=== PATIENT | male | born 1955 | race Caucasian/White ===

== ENCOUNTER 2017-08-01 12:16 | Observation (INO) | payer OTHER ==
[2017-08-01] MEDS ORDERED: Furosemide IV* 10 MG/ML 10 ML VIAL (100 MG) IV ONE (12:36)
[2017-08-01 13:07] LABS: Hematocrit 32 % (42-52); Hemoglobin 10.4 g/dl (14.0-18.0); Mean Corpuscular HGB Conc 32 g/dl (31-36); Mean Corpuscular Hemoglobin 23 pg (27-31); Mean Corpuscular Volume 71 fL (80-94); Mean Platelet Volume 6.6 um3 (7.4-10.4); Platelet Count 184 10^3/ul (150-450); Red Blood Count 4.56 10^6/ul (4.0-5.4); Red Cell Distribution Width 19 % (10.5-15)
[2017-08-01 13:15] LABS: INR 1.21 (0.77-1.02)
[2017-08-01 13:28] LABS: EGFR Non-African American 103.9 (>60)
--- NOTE | 2017-08-01 13:30 | RAD ---
INDICATION: Short of breath COMPARISON: May 29, 2013 TECHNIQUE: PA and lateral dual-energy views were obtained. FINDINGS: Bones/Soft Tissues: There are no acute bony findings. Cardiomediastinal: The cardiomediastinal silhouette is normal. Lungs: There are no infiltrates. There is normal platelike atelectasis or scarring in the lung bases Pleura: There are no pleural effusions. Other: None IMPRESSION: NO ACTIVE DISEASE.
[2017-08-01 13:45] LABS: ABS Basophils 0 10^3/ul (0-0.2); ABS Eosinophils 0 10^3/ul (0-0.6); ABS Lymphocytes 0.6 10^3/ul (1.0-4.8); ABS Monocytes 0.4 10^3/ul (0-0.8); ABS Nucleated RBC 0 10^3/ul; Eosinophil % 0.3 % (0-6); Lymphocyte % 6.9 % (25-47); Nucleated Red Blood Cells % 0
[2017-08-01 14:02] LABS: Urine Appearance Clear; Urine Blood Negative (Negative); Urine Color Colorless; Urine Ketones Negative (Negative); Urine Protein Negative (Negative); Urine Specific Gravity 1.005 (1.010-1.030); Urine Urobilinogen Negative (Negative)
[2017-08-01] MEDS ORDERED: NS 0.9% 1000 ML* 1,000 ML IV SCH (14:45)
[2017-08-01] MEDS ORDERED: Iohexol 300* (CONTRAST) 10 ML SDV IV ONE (15:14)
[2017-08-01] MEDS ORDERED: hydrALAZINE IV* 20 MG/ML VIAL IV SLOW PU PRN (15:21)
--- NOTE | 2017-08-01 15:47 | ED ---
Faisal Landaverde Gabriel, scribed for Jude Trevino MD on 08/01/17 at 1243 . Shortness of Breath - HPI Summary HPI Summary: This patient is a 61 year old M BIBA to [facility] accompanied by his with a chief complaint of general edema for the last three weeks that is getting worse. The patient rates the pain 0/10 in severity. Patient reports ABD distension, weight gain of around 40 lbs, and SOB. Pt denies hx of ascites and CHF. He states he has never had swelling like this before, although for the past few months he has had mild intermittent LLE edema. He takes a large amount of ibuprofen for the pain in his left thigh due to a mass that has been there for 15+ years. He states he does not want this to be looked at today, his is only concerned about his SOB. - History of Current Complaint Chief Complaint: EDShortnessOfBreath Time Seen by Provider: 08/01/17 12:29 Hx Obtained From: Patient Onset/Duration: Lasting Weeks - 3, Still Present Timing: Constant Current Severity: Moderate Dyspnea At: Rest Associated Signs & Symptoms: Edema - Allergy/Home Medications Allergies/Adverse Reactions: Allergies Allergy/AdvReac Type Severity Reaction Status Date / Time Adhesive Tape Allergy JAMISON, Verified 05/30/13 15:38 IRRITATION ENVIRONMENTAL/SEASONAL Allergy Congestion Uncoded 05/30/13 15:38 HAYFEVER Home Medications: Home Medications NK [No Home Medications Reported] 08/01/17 [History Confirmed 08/01/17] PMH/Surg Hx/FS Hx/Imm Hx Endocrine/Hematology History: Reports: Hx Anemia - control with medication Denies: Hx Bone Marrow Disease, Hx Sickle Cell Disease Cardiovascular History: Reports: Hx Hypertension - just started medication 2012, Other Cardiovascular Problems/Disorders - bilateral leg swelling Denies: Hx Angina, Hx Cardiomegaly, Hx Congestive Heart Failure, Hx Coronary Artery Disease, Hx Pacemaker/ICD, Hx Peripheral Vascular Disease, Hx Rheumatic Fever, Hx Valvular Heart Disease Respiratory History: Denies: Hx Pulmonary Edema, Hx Pulmonary Embolism Musculoskeletal History: Reports: Other Musculoskeletal History - occasional backache Denies: Hx Arthritis, Hx Bursitis, Hx Tendonitis Sensory History: Denies: Hx Contacts or Glasses, Hx Hearing Aid Opthamlomology History: Denies: Hx Contacts or Glasses Neurological History: Denies: Hx CVA, Hx Dementia - Surgical History Surgery Procedure, Year, and Place: LIPOMA Hx Anesthesia Reactions: No Infectious Disease History: No Infectious Disease History: Denies: Traveled Outside the [place] in Last 30 Days - Family History Known Family History: Negative: Diabetes, Renal Disease, Respiratory Disease, Seizure Disorder, Blood Disorder - Social History Lives: With Family Alcohol Use: Occasionally Substance Use Type: Reports: None Smoking Status (MU): Never Smoked Tobacco Review of Systems Positive: Other - weight gain of around 40 lbs Positive: Shortness Of Breath Positive: Other - distension Positive: Edema Positive: Other - mass in left hip All Other Systems Reviewed And Are Negative: Yes Physical Exam - Summary Physical Exam Summary: VITAL SIGNS: Reviewed. GENERAL: ~Obese male who is in mild respiratory distress secondary to SOB, he is able to speak in full sentences. HEAD AND FACE: No signs of trauma. ~No ecchymosis, hematomas or skull depressions. No sinus tenderness. EYES: PERRLA, EOMI x 2, No injected conjunctiva, no nystagmus. EARS: Hearing grossly intact. Ear canals and tympanic membranes are within normal limits. MOUTH: Oropharynx within normal limits. NECK: Supple, trachea is midline, no adenopathy, no JVD, no carotid bruit, no c- spine tenderness, neck with full ROM. CHEST: Symmetric, no tenderness at palpation LUNGS: bilateral crackles. CVS: muffled heart sounds ABDOMEN: ABD is distended with anasarca EXTREMITIES: bilateral LE edema that is 4+ NEURO: Alert and oriented x 3. No acute neurological deficits. Speech is normal and follows commands. SKIN: Dry and warm, mass in the left pelvic area and left proximal aspect of the left thigh Triage Information Reviewed: Yes Vital Signs On Initial Exam: Initial Vitals Pulse Resp BP Pulse Ox 99 26 209/107 96 08/01/17 12:21 08/01/17 12:21 08/01/17 12:21 08/01/17 12:21 Vital Signs Reviewed: Yes Diagnostics - Vital Signs Vital Signs Temp Pulse Resp BP Pulse Ox 08/01/17 12:23 97.3 F 97 24 209/107 96 08/01/17 12:21 99 26 209/107 96 - Laboratory Lab Results: Lab Results 08/01/17 08/01/17 08/01/17 Range/Units 12:55 12:55 12:55 WBC 8.0 (3.5-10.8) 10^3/ul RBC 4.56 (4.0-5.4) 10^6/ul Hgb 10.4 L (14.0-18.0) g/dl Hct 32 L (42-52) % MCV 71 L (80-94) fL MCH 23 L (27-31) pg MCHC 32 (31-36) g/dl RDW 19 H (10.5-15) % Plt Count 184 (150-450) 10^3/ul MPV 6.6 L (7.4-10.4) um3 Neut % (Auto) 87.2 H (38-83) % Lymph % (Auto) 6.9 L (25-47) % [place] % (Auto) 5.3 (0-7) % Eos % (Auto) 0.3 (0-6) % Baso % (Auto) 0.3 (0-2) % Absolute Neuts (auto) 7.0 (1.5-7.7) 10^3/ul Absolute Lymphs (auto) 0.6 L (1.0-4.8) 10^3/ul Absolute Monos (auto) 0.4 (0-0.8) 10^3/ul Absolute Eos (auto) 0 (0-0.6) 10^3/ul Absolute Basos (auto) 0 (0-0.2) 10^3/ul Absolute Nucleated RBC 0 10^3/ul Nucleated RBC % 0 INR (Anticoag Therapy) (0.77-1.02) APTT (26.0-36.3) seconds Sodium 141 (139-145) mmol/L Potassium 4.2 (3.5-5.0) mmol/L Chloride 106 (101-111) mmol/L Carbon Dioxide 30 (22-32) mmol/L Anion Gap 5 (2-11) mmol/L BUN 18 (6-24) mg/dL Creatinine 0.76 (0.67-1.17) mg/dL Est GFR ( Amer) 133.7 (>60) Est GFR (Non-Af Amer) 103.9 (>60) BUN/Creatinine Ratio 23.7 H (8-20) Glucose 133 H (70-100) mg/dL Lactic Acid 1.3 (0.5-2.0) mmol/L Calcium 8.8 (8.6-10.3) mg/dL Iron Pending TIBC Pending % Saturation Pending Unsat Iron Binding Pending Transferrin Pending Ferritin Pending Total Bilirubin 0.80 (0.2-1.0) mg/dL AST 15 (13-39) U/L ALT 10 (7-52) U/L Alkaline Phosphatase 142 H (34-104) U/L Total Creatine Kinase 20 (10-223) U/L CK-MB (CK-2) 1.6 (0.6-6.3) ng/mL Troponin I 0.00 (<0.04) ng/mL C-Reactive Protein 16.88 H (< 5.00) mg/L B-Natriuretic Peptide ( - 100) pg/mL Total Protein 6.5 (6.4-8.9) g/dL Albumin 3.4 (3.2-5.2) g/dL Globulin 3.1 (2-4) g/dL Albumin/Globulin Ratio 1.1 (1-3) Folate Pending 08/01/17 08/01/17 Range/Units 12:55 12:55 WBC (3.5-10.8) 10^3/ul RBC (4.0-5.4) 10^6/ul Hgb (14.0-18.0) g/dl Hct (42-52) % MCV (80-94) fL MCH (27-31) pg MCHC (31-36) g/dl RDW (10.5-15) % Plt Count (150-450) 10^3/ul MPV (7.4-10.4) um3 Neut % (Auto) (38-83) % Lymph % (Auto) (25-47) % [place] % (Auto) (0-7) % Eos % (Auto) (0-6) % Baso % (Auto) (0-2) % Absolute Neuts (auto) (1.5-7.7) 10^3/ul Absolute Lymphs (auto) (1.0-4.8) 10^3/ul Absolute Monos (auto) (0-0.8) 10^3/ul Absolute Eos (auto) (0-0.6) 10^3/ul Absolute Basos (auto) (0-0.2) 10^3/ul Absolute Nucleated RBC 10^3/ul Nucleated RBC % INR (Anticoag Therapy) 1.21 H (0.77-1.02) APTT 33.2 (26.0-36.3) seconds Sodium (139-145) mmol/L Potassium (3.5-5.0) mmol/L Chloride (101-111) mmol/L Carbon Dioxide (22-32) mmol/L Anion Gap (2-11) mmol/L BUN (6-24) mg/dL Creatinine (0.67-1.17) mg/dL Est GFR ( Amer) (>60) Est GFR (Non-Af Amer) (>60) BUN/Creatinine Ratio (8-20) Glucose (70-100) mg/dL Lactic Acid (0.5-2.0) mmol/L Calcium (8.6-10.3) mg/dL Iron TIBC % Saturation Unsat Iron Binding Transferrin Ferritin Total Bilirubin (0.2-1.0) mg/dL AST (13-39) U/L ALT (7-52) U/L Alkaline Phosphatase (34-104) U/L Total Creatine Kinase (10-223) U/L CK-MB (CK-2) (0.6-6.3) ng/mL Troponin I (<0.04) ng/mL C-Reactive Protein (< 5.00) mg/L B-Natriuretic Peptide 203 H ( - 100) pg/mL Total Protein (6.4-8.9) g/dL Albumin (3.2-5.2) g/dL Globulin (2-4) g/dL Albumin/Globulin Ratio (1-3) Folate Result Diagrams: 08/01/17 12:55 08/01/17 12:55 Lab Statement: Any lab studies that have been ordered have been reviewed, and results considered in the medical decision making process. - Radiology CXR Radiology Interpretation Completed By: Radiologist - no active disease ED physician has reviewed this radiology report. - EKG 12:40 Cardiac Rate: NL EKG Rhythm: Sinus Rhythm - at 94 BPM EKG Interpretation: no ST elevations, Q wave in [address] depression in v5 and v6 EKG Comparison: Other - changed from EKG 06-03-13 Course/Dx - Course Assessment/Plan: This patient is a 71-year-old male who presents to the emergency room with a chief complaint of shortness of breath. He reports that hes been having shortness of breath, bilateral extremity edema, abdominal distention and possibly gain of 40 pounds for the last 3 weeks. The patient reports that he has no history of CHF for history of cirrhosis of the liver. He reports that he has been taking ibuprofen multiple times a day secondary to pain in the left leg in the pelvic area. Patient reports that he has a mass for the last 15 years but now the pain is increasing. Also he reports that he doesnt need had any workup for this mass, he wants only a workup for his swelling. Blood work without any significant abnormality. Chest x-ray shows no acute pathology. Because of anasarca I discussed the case with Dr. Camilo who accepted the patient for admission. The patient is hemodynamically stable and he is alert and oriented 3 - Diagnoses Differential Diagnosis/HQI/PQRI: Positive: CHF, Other - Anasarca, bilateral lower extremity edema Provider Diagnoses: Anasarca - Physician Notifications Discussed Care of Patient With: Lyubov Camilo Time Discussed With Above Provider: 13:41 Instructed by Provider To: Admit As Inpatient Discharge - Sign-Out/Discharge Documenting (check all that apply): Discharge/Admit/Transfer - admitted to Dr Camilo - Discharge Plan Condition: Fair Disposition: ADMITTED TO [facility] - Billing Disposition and Condition Condition: FAIR Disposition: [facility] [place] The documentation as recorded by the Faisal palma Gabriel accurately reflects the service I personally performed and the decisions made by me, Jude Trevino MD.
[2017-08-01] MEDS ORDERED: Perflutren Lipid Microsphere* 3 ML VIAL ONE (16:30)
--- NOTE | 2017-08-01 18:05 | ECHO ---
Patient: AMBAR STEINER I [facility] Rec#: [id number] : 1955 Date: 08/01/2017 Age: 61y Height: 191 cm / 75.2 in Weight: 155 kg / 341.6 lbs Sex: M BSA: 2.76 Room#: 431 Admit Date#: 08/01/2017 Type: Inpatient Referring: Cherelle Colón Reading: Keegan De La Torre DO [employer]ocational [employer] Instructor: Dorene Solorzano RN RDCS CC: Romaine Sauceda Transthoracic Echocardiogram Indication: Anasarca, SOB BP: 151/103 HR: 90 Rhythm: NSR Findings Technical Comments: The study is technically limited due to poor apical windows. The study is technically limited due to patient body habitus. Completed at 1725. Left Ventricle: The left ventricular chamber size is normal. Mild concentric left ventricular hypertrophy is observed.with mildly more prominent basal septal hypertrophy Global left ventricular wall motion and contractility are within normal limits. There is normal left ventricular systolic function. The estimated ejection fraction is greater than 65%. The assessment of diastolic function is non-diagnostic. Left Atrium: The left atrium is mildly dilated. Right Ventricle: The right ventricle is not well visualized. The right ventricular cavity size is normal. The right ventricular global systolic function is normal. Right Atrium: The right atrium is mildly dilated. Aortic Valve: The aortic valve is trileaflet. The aortic valve leaflets are mildly thickened. There is no evidence of aortic regurgitation. There is no evidence of aortic stenosis. Mitral Valve: The mitral valve leaflets are mildly thickened. There is a trace of mitral regurgitation. There is no evidence of mitral stenosis. Tricuspid Valve: The tricuspid valve leaflets are normal. There is trace tricuspid regurgitation. Unable to estimate the right ventricular systolic pressure. There is no tricuspid stenosis. Pulmonic Valve: The pulmonic valve appears normal. There is trace to mild pulmonic regurgitation. There is no pulmonic stenosis. Pericardium: There is no significant pericardial effusion. Aorta: There is mild dilatation of the ascending aorta. There is no dilatation of the aortic arch. There is mild dilatation of the aortic root. Pulmonary Artery: The main pulmonary artery is not well visualized. Venous: The venous system is not well visualized. The inferior vena cava is not visualized. Contrast: Definity was used to optimize study. Intravenous contrast was used to enhance endocardial border definition. A total of 4 ml of diluted Definity was given IV. Conclusions The left ventricular chamber size is normal. Mild concentric left ventricular hypertrophy is observed with mildly more prominent basal septal hypertrophy Global left ventricular wall motion and contractility are within normal limits. There is normal left ventricular systolic function. The estimated ejection fraction is 65-70% The left atrium is mildly dilated. The right ventricle is not well visualized although appears to have normal RV size and function on apical views. No significant valvular abnormalities noted Unable to estimate the right ventricular systolic pressure. Non prior for comparison at time of interpretation Measurements Name Value Normal Range RVIDd (AP) 2D 3.2 cm (0.9 - 2.6) RVDdMajor (2D) 4.6 cm (2.2 - 4.4) RAd ISD 4CH 5.5 cm (3.4 - 4.9) RA (A4C)W 4.5 cm (2.9 - 4.6) IVSd (2D) 1.3 cm (0.6 - 1) LVPWd (2D) 1.3 cm (0.6 - 1) LVIDd (2D) 3.7 cm (3.6 - 5.4) LVIDs (2D) 2.6 cm - LV FS (2D) 30 % (25 - 45) Aortic Annulus 2.5 cm (1.4 - 2.6) Ao root diameter (2D) 3.7 cm (2.1 - 3.5) Ascending Ao 3.8 cm (2.1 - 3.4) Aortic arch 2.7 cm (1.8 - 3.4) LA dimension (AP) 2D 4.2 cm (2.3 - 3.8) LAd ISD 4CH 6.2 cm (2.9 - 5.3) LA ISD 4CH W 4.6 cm (2.5 - 4.5) Name Value Normal Range LA ESV SP 4CH (A/L) 84 ml - LA ESV SP 2CH (A/L) 111 ml - LA ESV BP (A/L) 100 ml - LA ESV BP (A/L) index 36.2 ml/m2 - LA ESV SP 4CH (MOD) 77 ml - LA ESV SP 2CH (MOD) 106 ml - Name Value Normal Range MV E-wave Vmax 0.82 m/sec - MV deceleration time 218 msec - MV A-wave Vmax 1.2 m/sec - MV E:A ratio 0.66 ratio - LV septal e' Vmax 0.07 m/sec - LV lateral e' Vmax 0.12 m/sec - LV E:e' septal ratio 11.7 ratio - LV E:e' lateral ratio 6.8 ratio - Name Value Normal Range AV Vmax 1.5 m/sec - AV VTI 27.9 cm - AV peak gradient 9 mmHg - AV mean gradient 5 mmHg - LVOT Vmax 1.3 m/sec - LVOT VTI 25.1 cm - LVOT peak gradient 6.3 mmHg - LVOT mean gradient 3 mmHg - BARBARA Vmax 0.83 m/sec - Name Value Normal Range PV Vmax 0.92 m/sec -
--- NOTE | 2017-08-01 19:42 | HP ---
CC: Dr. Romaine Arteaga * HISTORY AND PHYSICAL: DATE OF ADMISSION: 08/01/17 PROVIDER: Terrance Swanson NP ATTENDING PHYSICIAN: Lyubov Ward MD * (report dictated by Terrance Swanson NP). PRIMARY CARE PROVIDER: Romaine Arteaga MD CHIEF COMPLAINT: Lower extremity edema. HISTORY OF PRESENT ILLNESS: Mr. Causey is a 61-year-old male who presents to the emergency department today after being evaluated at his primary care provider's office with complaint of generalized edema, mostly in his lower extremities for the last 2 to 3 weeks. He reports he went to his primary care provider's office today for evaluation of this lower extremity swelling. There was a concern for possible congestive heart failure, but also the patient reported he takes large amounts of NSAIDs for pain in his left upper thigh and there was concern for acute renal failure. In the Emergency Room the patient underwent a chest x-ray, which shows no active disease. His BNP is noted to be 203 and normal renal function. The patient reports that he has had this "mass in my thigh" for approximately 15 years; however, he reports intermittent pain starting approximately 3 years ago with more constant pain and enlargement of the left thigh mass and starting in the fall 2016. He reports at that time in November 2016, he started taking ibuprofen 800 mg 2 tabs 2 times a day, reporting that he was taking 1600 mg b.i.d. 4 to 5 times a week then reporting he stopped in March because somebody told him it "could kill me" and he switched to Aleve regular strength one tab every 8 hours. He reports his left thigh mass has enlarged since that time causing increased pain "pushing on the skin". He denies any open areas or drainage. The patient has a history of a bowel obstruction with bowel resection in May 2013, which had a pathology report positive for melanoma. At that time , he was referred to Oncology, but never followed up. Today, the patient reports over the past couple weeks, he has had increasing shortness of breath, especially with exertion and going upstairs. He denies orthopnea. He reports mostly bilateral lower extremity swelling, worsening over the past 3 weeks. He reports he has had no difficulty voiding and reports a clear yellow urine. No constipation or diarrhea, reports normal bowel movements. Denies nausea or vomiting. Reports good appetite. Denies weight loss. No night sweats. Denies fevers or chills. The patient reports that up until today the last time he saw his primary care provider was approximately 3 years ago reporting that his PCP left town and has not followed up with anybody since. He states that he has a history of hypertension and supposed to take medication, but when he ran out he states he never followed up with the new provider. Today in the emergency department, he is noted to have a blood pressure of 209/107. PAST MEDICAL HISTORY: 1. Iron-deficiency anemia. 2. Hypertension, uncontrolled. 3. History of melanoma diagnosed in May 2013, noncompliant with followup. 4. Small-bowel partial resection. 5. History of bowel obstruction status post resection in May 2013. 6. Morbid obesity. HOME MEDICATIONS: None. ALLERGIES: ENVIRONMENTAL. FAMILY HISTORY: His mother has history of dementia. His father in the 70s from COPD. SOCIAL HISTORY: Denies history of tobacco use. No alcohol use. 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 He lives at home with his , Kimberly who is his healthcare proxy. He has one step-daughter. REVIEW OF SYSTEMS: A 14-point review of systems was performed. All the pertinent positives and negatives are mentioned in the history of present illness. Otherwise, negative. PHYSICAL EXAMINATION GENERAL APPEARANCE: Morbidly obese male, alert and oriented x3, sitting up in emergency department stretcher, in no acute distress. VITAL SIGNS: Temperature 97.3, heart rate 102, respirations 18, O2 sat is 95% on room air, blood pressure 151/103. HEENT: Head is normocephalic, atraumatic. Pupils are equal and reactive to light. Oropharynx is clear. Moist mucous membranes. Good dentition. NECK: Supple. CARDIAC: S1 and S2. Regular rate and rhythm. No murmur noted. 2+ lower extremity edema to bilateral lower extremities. ABDOMEN: Obese, distended, soft, nontender. Difficult to auscultate bowel sounds due to obesity. MUSCULOSKELETAL: No clubbing or cyanosis. Moves all extremities. Strength is 5/5 throughout. NEUROLOGIC: Cranial nerves II through XII are grossly intact. No focal deficits noted. SKIN: Left upper medial aspect of thigh has a large mass-like area measuring approximately 8 inches x 5 inches, which is hard to touch. Mild erythema. No drainage or opening noted. Tender to palpation. LABORATORY DATA AND DIAGNOSTIC STUDIES: WBC is 8.0, RBC 4.56, HGB 10.4, HCT 32 , MCV 71, MCH 23, MCHC is 32, RDW 19, and platelet count 184. INR 1.21. Sodium 141, potassium 4.2, chloride 106, carbon dioxide 30, anion gap 5, BUN 18 , creatinine 0.76, glucose 133, lactic acid 1.3, calcium 8.8, total bilirubin 0.80, AST 15, ALT 10, alkaline phosphatase 142. Total creatine kinase 20. CK- MB 1.6. Troponin 0.00. C-reactive protein 16.88. BNP 203. Total protein 6.5 , albumin 3.4. Urinalysis unremarkable. Chest x-ray, impression: No active disease. EKG, sinus rhythm with a rate of 94. No ST changes noted. ASSESSMENT AND PLAN: Mr. Causey is a 61-year-old male with a past medical history of uncontrolled hypertension, iron-deficiency anemia, history of small bowel obstruction status post resection with noted pathology for a melanoma in 2013 with no followup who presents to the emergency department today from his primary care provider's office for increased bilateral lower extremity swelling , who also presents with a large mass like area on his left upper thigh. 1. Lower extremity edema, unclear etiology at this time. I am concerned that this left upper thigh mass can possibly be a tumor pressing on the vascular system causing the edema. Plan to obtain a CAT scan of the area along with a chest/abdomen/pelvics CT. He was taking high dose NSAIDs; however, his renal function is normal on assessment today. Other differential could be congestive heart failure; however, his BNP is mildly elevated and his chest x-ray is clear of fluid but I have lower suspicion for this. He is at risk for congestive heart failure with his uncontrolled hypertension. Will obtain an echocardiogram. He received 60 mg of Lasix in the emergency department. At this time, I am going to hold diuretics. Strict I's and O's. Daily weights. 2. Uncontrolled hypertension. Hydralazine p.r.n. and we will start the patient on blood pressure medication. Continue to closely monitor and titrate as needed. 3. Left upper thigh mass. As discussed above, plan to obtain CT scan. Depending on what this shows most likely the patient will need a surgical consult. I do not think he needs antibiotics at this time. 4. History of melanoma diagnosed in 2013 with no followup. Plan for chest, abdomen, and pelvis CT scan with contrast. I do note that his alkaline phosphatase is elevated. Awaiting imaging and will consult Oncology. 5. History of iron-deficiency anemia. We will add on iron studies. He is also at high risk for a GI bleed due to the high dose NSAIDs he has been taking. We will add on stool for occult blood. 6. DVT prophylaxis. Heparin subcu. 7. Code status. Full code. 8. Hospital status. Observation. TIME SPENT: Approximately 60 minutes were spent on this admission. TERRANCE SWANSON, LOUIE [id number]/[facility] #: [id number] KAMALA
--- NOTE | 2017-08-01 20:21 | RAD ---
INDICATION: Anasarca. Question CHF. History of melanoma with LEFT groin mass. COMPARISON: May 29, 2013 CT abdomen pelvis and August 01, 2017 chest radiograph. TECHNIQUE: Multidetector CT images were obtained from the lung apices to the ischial tuberosities with 150 mL Omnipaque 300 IV contrast. Oral contrast administered. CHEST REPORT: LEFT greater than RIGHT small dependent pleural effusions with proportional atelectasis. No suspicious focal pulmonary lesions. Negative for pneumothorax. 0.4 cm short axis RIGHT epicardial lymph node without significant change compared with the 2014 exam. Negative for thoracic lymphadenopathy, cardiomegaly, or pericardial effusion. Negative for suspicious thoracic osseous lesions. CHEST IMPRESSION: 1. LEFT greater than RIGHT small dependent pleural effusions with proportional atelectasis. 2. Upper normal heart size. No compelling evidence for pulmonary edema based on the alveolar and interstitial pulmonary spaces. 3. Negative for lymphadenopathy. ABDOMEN PELVIS REPORT: Normal size liver. No conspicuous focal hepatic lesions. No CT abnormality of the gallbladder. Moderately atrophic pancreas without suspicious finding. 19.7 cm cephalocaudal enlarged spleen. Splenule at the splenic hilum. Negative for CT abnormality of the upper GI, small bowel, or appendix. Mild colonic diverticulosis without findings of acute diverticulitis. Large volume of ascites. Negative for free air or significant hernias. Normal adrenal glands. Small hypodense renal cortical lesions without significant change most consistent with benign cysts. Negative for hydronephrosis. Symmetric nephrograms and pyelograms. Unremarkable nondilated ureters. Decompressed urinary bladder limiting assessment without gross abnormality. Symmetric seminal vesicles. 13.8 x 10.5 x 15.3 cm lobular margined heterogeneously enhancing LEFT inguinal lymph node increased from 3.7 cm maximum dimension on the 2014 exam. 2.2 cm short axis LEFT external iliac lymph node increased from 1.6 cm previously. 3.0 cm short axis metastatic implant or lymph node at the small bowel mesentery new compared with the prior exam. Normal diameter abdominal aorta and iliac arteries. Partially decompressed IVC indicating lower intravascular volume. Asymmetric enlargement of the LEFT thigh. Diffuse subcutaneous edema. Negative for suspicious focal osseous lesions. 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 ABDOMEN PELVIS IMPRESSION: 1. Splenomegaly new compared with the prior exam. 2. 13.8 x 10.5 x 15.3 cm lobular margined heterogeneously enhancing LEFT inguinal lymph node increased from 3.7 cm maximum dimension on the 2014 exam. 2.2 cm short axis LEFT external iliac lymph node increased from 1.6 cm previously. 3.0 cm short axis metastatic implant or lymph node at the small bowel mesentery new compared with the prior exam. 3. Large volume of ascites. Diffuse subcutaneous edema. Anasarca. 4. Asymmetric enlargement of the LEFT thigh. Consider LEFT lower extremity venous ultrasound to exclude DVT.
[2017-08-01] MEDS: Heparin VIAL(*) 5000 UNITS/ML VIAL (FIVE THOUSAND) SUBCUT SCH (20:52)
[2017-08-02] MEDS: Heparin VIAL(*) 5000 UNITS/ML VIAL (FIVE THOUSAND) SUBCUT SCH ×2 (05:23→14:22)
[2017-08-02 07:04] LABS: ABS Basophils 0 10^3/ul (0-0.2); ABS Eosinophils 0 10^3/ul (0-0.6); ABS Lymphocytes 0.6 10^3/ul (1.0-4.8); ABS Monocytes 0.5 10^3/ul (0-0.8); ABS Neutrophils 6.1 10^3/ul (1.5-7.7); ABS Nucleated RBC 0 10^3/ul; Eosinophil % 0.6 % (0-6); Hematocrit 31 % (42-52); Hemoglobin 9.9 g/dl (14.0-18.0); Lymphocyte % 8.8 % (25-47); Mean Corpuscular HGB Conc 32 g/dl (31-36); Mean Corpuscular Hemoglobin 23 pg (27-31); Mean Corpuscular Volume 71 fL (80-94); Mean Platelet Volume 6.8 um3 (7.4-10.4); Nucleated Red Blood Cells % 0; Platelet Count 193 10^3/ul (150-450); Red Blood Count 4.37 10^6/ul (4.0-5.4); Red Cell Distribution Width 19 % (10.5-15); White Blood Count 7.4 10^3/ul (3.5-10.8)
[2017-08-02 07:17] LABS: EGFR Non-African American 87.8 (>60)
--- NOTE | 2017-08-02 09:53 | PN ---
Subjective Date of Service: 08/02/17 Interval History: Mr. Causey reports that he is feeling better than on arrival. He denies shortness of breath. He has continued abdominal fullness and edema but reports that is it better than on arrival. He denies chest pain or SOB and is tolerating oral intake well. Objective Active Medications: Heparin Sodium (Porcine) (Heparin Vial(*)) 5,000 units SUBCUT Q8HR AVNESSA Hydralazine HCl (Apresoline Iv*) 5 mg IV SLOW PU Q6H PRN Vital Signs: Temp Pulse Resp BP Pulse Ox 97.6 F 96 22 168/90 96 08/02/17 03:44 08/02/17 03:44 08/02/17 03:44 08/02/17 03:58 08/02/17 03:44 Oxygen Devices in Use Now: None Appearance: Male sitting up in bed in NAD Eyes: No Scleral Icterus Ears/Nose/Mouth/Throat: Mucous Membranes Moist Neck: Trachea Midline Respiratory: Symmetrical Chest Expansion and Respiratory Effort, Clear to Auscultation Cardiovascular: NL Sounds; No Murmurs; No JVD, - - +1-2 bilateral LEs Abdominal: NL Sounds; No Tenderness; No Distention Lymphatic: No Cervical Adenopathy Skin: No Rash or Ulcers Neurological: Alert and Oriented x 3, NL Muscle Strength and Tone Nutrition: Taking PO's Result Diagrams: 08/02/17 06:45 08/02/17 06:45 Additional Lab and Data: . Assess/Plan/Problems-Billing Assessment: Mr. Causey is a 61 yo M with a PMH of melanoma of the small bowel in 2013 without follow up per patient preference who was admitted on 08/01/17 with concern for large left thigh mass and edema found to have enlarged inguinal lymph node suspicious for cancer. - Patient Problems (1) Lymphadenopathy Comment: - Massively enlarged left inguinal lymph node with suspicion for metastasis with hx of small bowel melanoma without follow up. - Oncology consult appreciated, patient needs biopsy and states that he will follow up outpatient after he reviews with his . (2) Edema Comment: - Left LE doppler negative, though suspect swelling related to compression from massive lymphadenopathy. - Echo without evidence of heart failure, intact EF with no significant wall motion or valvular abnormalities. - Plan for low dose lasix, recommend close follow up with PCP. (3) DVT prophylaxis Comment: - Heparin SQ. (4) Full code status Comment: Status and Disposition: Discharge to home.
--- NOTE | 2017-08-02 10:38 | RAD ---
HISTORY: Left lower extremity edema COMPARISONS: CT dated August 01, 2017 TECHNIQUE: Multiple transverse and longitudinal ultrasound images were obtained of the left lower extremity from the level of the common femoral vein inferiorly through to the infrapopliteal veins using grayscale, color Doppler, and spectral Doppler imaging with and without compression and with augmentation. Comparison images were obtained of the contralateral common femoral vein. FINDINGS: The study is limited by patient body habitus. VEINS: The venous system of the left lower extremity is compressible throughout its course, with normal flow on color Doppler imaging and normal response to augmentation on spectral Doppler imaging. SOFT TISSUES: There is a lobulated hypoechoic mass of the left inguinal region corresponding to the mass described on the CT of August 01, 2017. OTHER FINDINGS: None. IMPRESSION: NO LEFT LOWER EXTREMITY DEEP VEIN THROMBOSIS
[2017-08-02] MEDS ORDERED: Furosemide IV* 10 MG/ML VIAL (40 MG) IV ONE (10:53)
[2017-08-02 16:41] VITALS: BP 142/74
--- NOTE | 2017-08-03 02:03 | CONS ---
CC: Dr. Romaine Arteaga; Dr. Checo Vides * MEDICAL ONCOLOGY CONSULTATION NOTE: DATE OF CONSULT: 08/02/17 REASON FOR CONSULT: Large left inguinal mass along with previous history of melanoma. HISTORY OF PRESENT ILLNESS: Mr. Causey is a 61-year-old male, who presented to the emergency room on 08/01/17. He had been seen earlier in the day in his primary care physician's office, Dr. Arteaga, complaining of increasing swelling in his lower extremities, left greater than right, along with increased abdominal distention. The patient's medical history dates back to approximately 5 years ago when he was seen in the emergency room with H and H that was hematocrit of 23 with a hemoglobin of 6.4. He was evaluated by the emergency room physician as well as the hospitalist service. A decision was made for him to be discharged home, as he was hemodynamically stable to follow up with GI for further GI workup. The patient did not keep this appointment with Dr. Harris at that time. Subsequent to this, in May of 2013, he presented to the emergency room with abdominal distention. Several days earlier, he had been carrying large buckets of water, fell on the ice, and injured his abdomen. He had developed worsening abdominal discomfort along with nausea and vomiting. A CT scan was performed and showed a small bowel intussusception. The patient continued to have significant nausea and vomiting with a need for NG tube placement. He was seen in consultation by Dr. Aguilar of Surgery and following the initial use of antibiotics with Cipro and Flagyl was taken to the operating room on 06/03/13. He had an exploratory laparotomy and small bowel resection. The intussusception was reduced and there appeared to be an ulcerated lesion at the site. The portion of bowel was resected. Pathology revealed malignant melanoma measuring 4.2 x 3.8 x 2 cm. Ulceration was present. There was a high mitotic rate of 11 per sq. m. The melanoma was present 0.35 mm in inked serosal surface, which was not felt to be a true margin and 2.1 cm to the closest proximal margin. There was angiolymphatic invasion present involving the mesenteric vessel. Satellite lesion was also noted in the specimen. It was unclear whether this was a primary extremely unusual small bowel melanoma or whether this was a metastatic lesion to the small bowel. Status post stains of Melan-A, HMB-45, and S100 were all positive confirming the diagnosis of melanoma. The patient was then scheduled to see me in consultation to further discuss treatment for melanoma; had 2 office visits scheduled, the first for approximately 3 weeks postoperatively and another appointment was scheduled subsequent to that. He denies keeping with these appointments. The patient reports that he is having mass in his thigh/groin for approximately 15 years. He remembers an episode where he believes this occurred when he was injured while . He reports that he himself pointed out the mass when he was going to Dr. Aguilar 3 years ago. He reports about 2 years ago, the mass started to grow and had become very uncomfortable for the last 2 years, starting last November, he started taking high doses of ibuprofen up to 1600 mg b.i.d. He stopped this in March after he felt his dose of ibuprofen was too high and at that point switched to Aleve taking 1 regular strength Aleve about 2 to 3 times per day. The pain has improved since being off the ibuprofen , but has persisted. He reports that he has had swelling in the contralateral left leg for approximately 15 years and he had footdrop on that side for approximately 30 years. The patient reports he is having increasing shortness of breath for approximately last 3 weeks to 4 weeks. This is worst on climbing stairs. 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 His weight has increased approximately 40 pounds over the past several months. He was unaware of this other than the fact that his pants were much tighter, not having weighed himself at home. PAST MEDICAL HISTORY: 1. Iron-deficiency anemia in 2012, likely related to the melanoma found 1 year later. 2. Hypertension, treated in the past with medications. He stopped seeing his primary care physician about 3 years ago and currently uncontrolled. 3. Melanoma, either metastatic to the small bowel or much less likely primary in the small bowel. 4. Obesity. 5. Status post resection of large lipoma on the back with Dr. Harvey in 2012. Pathology of that lesion revealed a simple lipoma. MEDICATIONS: None prior to admission. ALLERGIES: None. FAMILY HISTORY: Father at age 70 with COPD. Mother at age 85 with dementia. No family history of any malignancies. 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 He lives with his . In addition to the household, in the other half of the duplex is his step- daughter and her family. He denies any cigarette use and only occasional alcohol. REVIEW OF SYSTEMS: As discussed above. He denies any significant arthritic or bony complaints. Denies any significant GI complaints such as heartburn or reflux. Denies any significant changes in bowel or bladder habits. No significant neurologic complaints other than footdrop on the left. PHYSICAL EXAM: A 61-year-old male in no acute distress. Vital Signs: Blood pressure 162/76, pulse 93, afebrile. HEENT: PERRL, EOM. No erythema or exudates. No palpable cervical, supraclavicular, or axillary adenopathy. Lungs : Clear. Heart: Regular rate and rhythm without murmurs, rubs, or gallops. Abdomen is distended. Fluid wave is present. Bowel sounds are normoactive. There is no significant guarding, rebound, or tenderness. Back: No CVA or spinal tenderness. Extremities: Significant edema of both legs, left greater than right. Left thigh with a very large mass, which is very firm and somewhat tender. There is no redness, warmth, or drainage to it. It measures approximately 20 cm in greatest diameter. DIAGNOSTIC STUDIES/LAB DATA: Include CBC with a white count of 7400, hematocrit 31, hemoglobin 9.9, platelet count of 193,000. Chemistry studies: Sodium 141, potassium 4.2, chloride 106, bicarb 30, BUN 18, creatinine 0.76, glucose 133. Alk phos 142, mildly elevated; AST and ALT are normal as is the bilirubin at 0.8. Iron saturation at 8% with a ferritin of 275. C-reactive protein mildly elevated at 16.8. Imaging studies have included a CT scan of the chest, abdomen, and pelvis, which I personally reviewed. It reveals subcutaneous edema and anasarca in multiple locations, large amounts of ascites present throughout the abdomen. Splenomegaly is new compared to the previous exam with the spleen measuring up to 20 cm in craniocaudal dimension. There is a very large left inguinal mass present measuring 13.8 x 15.3 cm. Although not mentioned in 2014, in retrospect was there and measured about 4 cm at that time. In addition, there are other smaller lymph nodes present along with a mesenteric implant in the small bowel mesentery measuring 3 cm. The left leg has significant enlargement in the thigh and because of this, a Doppler ultrasound was performed and did not reveal any DVT. IMPRESSION AND PLAN: A 61-year-old male with previous history of very large melanoma in the small bowel in 2013, who did not follow up at that time. He also did not follow up after previous gastrointestinal bleed 1 year early, which ____ due to the small bowel lymphoma. He has noted some symptoms in his leg dating back many years, but marked increase in his symptoms from the past 2 years, and only recently sought out primary care attention. He also has not followed up in regards to his known hypertension and medications lapsed for 3 years. I am extremely worried as to his compliance with any medical plans that might be proposed to him as he tells me today when I explained to him that he absolutely needs a biopsy of this left groin mass that he needs to discuss this with his first and does not want to keller into anything. This is highly suspicious for metastatic melanoma to this region given the fact that he has also ascites, mesenteric implant, and previous extensive small bowel melanoma with high-risk features including high mitotic rate, satellite lesions, and lymphovascular involvement. Hopefully, the patient agreed to a biopsy in the near future. If this turns out to be metastatic melanoma, we will have to consider whether there are any local therapy options that might be warranted or the possibility with radiation therapy, but melanomas do tend to be somewhat radiation resistant. One can also consider use of immunotherapy or if it is BRAF positive, BRAF therapy for metastatic melanoma. It is also possible it serves as a primary, but I believe this is pretty much less likely. Once pathology has been obtained, further recommendations will follow. The patient was asked repeatedly if he has ever had any skin biopsies or skin lesions that were frozen or burned off, he reports he has not. There is no obvious melanoma on a reasonably complete skin exam today. [id number]/[facility] #: [id number] [facility]
--- NOTE | 2017-08-03 07:45 | DS ---
CC: Dr. Romaine Arteaga * [facility] MEDICINE DISCHARGE SUMMARY: DATE OF ADMISSION: 08/01/17 DATE OF DISCHARGE: 08/02/17 PRIMARY CARE PHYSICIAN: Dr. Romaine Arteaga. ATTENDING PHYSICIAN: Dr. Melany Mercado * (dictation provided by Violetta Reaves NP ). PRIMARY DIAGNOSES: 1. Large left inguinal hernia with suspicion for metastatic cancer. 2. Bilateral lower extremity edema, left greater than right. 3. Ascites. 4. Splenomegaly. 5. Hypertension. SECONDARY DIAGNOSES: 1. History of iron deficiency anemia. 2. Hypertension, uncontrolled. 3. History of melanoma diagnosed in May 2013, noncompliant with followup. 4. Small bowel resection and history of bowel obstruction, status post resection in May 2013. 5. Morbid obesity. MEDICATIONS AT THE TIME OF DISCHARGE: Lasix 20 mg p.o. daily. HOSPITAL COURSE: Mr. Causey is a 61-year-old male with a past medical history of melanoma of the small bowel in 2013, who did not follow up with Oncology, who presents to the hospital on 08/01/17 with concern for lower extremity edema. Please see dictated H and P from Cherelle Colón NP, for complete details. In brief, the patient reported that he had followed up with his primary care physician and there was concern for generalized edema with request that he come to the emergency room for evaluation. The patient also reported he was taking large amounts of NSAIDs for pain to his left upper thigh where he had had a large mass for what he describes more than 15 years. In the emergency room, his blood pressure was systolically in the 200s, his labs were remarkable for anemia with a hemoglobin of 10.4, hematocrit 32. He had a CT abdomen and pelvis for evaluation of abdominal distention and left thigh mass, which showed "splenomegaly new compared with prior exam. 13.8 x 10.5 x 15.3 cm lobular margined, heterogeneously enhancing left inguinal lymph node, increased from 3.7 cm in maximal dimension in 2014 exam. 2.2-cm short axis left external iliac lymph node increased from 1.6 previously, 3-cm short axis metastatic implant or lymph node at the small bowel mesentery new compared with prior exam. Large volume of ascites, diffuse subcutaneous edema, and anasarca. Asymmetric enlargement of the left thigh, consider left lower extremity venous ultrasound to exclude DVT." Mr. Cortright was admitted to the hospital. He did have the left lower extremity ultrasound, which did not show DVT. Because of the anasarca, he also had a transthoracic echocardiogram, which showed an intact ejection fraction with no evidence of significant wall motion or valvular abnormalities. Because of the history of melanoma and the massive lymphadenopathy in the left inguinal region, the patient was seen in consultation by Dr. Vides. I will note that that the patient had planned followup for history of melanoma in 2013, but had not seen Dr. Vides outpatient. Dr. Vides again recommends that the patient follow up outpatient and he should have a biopsy of that left inguinal lymph node with high suspicion for metastatic melanoma. Mr. Causey states that he is eager for discharge today. He reports that he feels better in terms of the edema with Lasix administration IV x2. The plan for him will be to be discharged to home on oral Lasix per his request. He states at this time that he does plan to follow up with Dr. Vides but that he would like to review this with his first. I strongly encouraged him that in addition to the followup with Dr. Vides, he does need to see Dr. Arteaga regarding continued administration of Lasix and monitoring of his creatinine, etc. Mr. Causey is medically stable for discharge to home with strong recommendation to follow up with Dr. Vides and Dr. rAteaga. DISPOSITION: Home. DIET: Low salt. ACTIVITY: As tolerated. FOLLOWUP PLANS: 1. Please follow up with Dr. Vides in the next 1 week. 2. Please follow up with Dr. Arteaga in the next week. TIME SPENT: Approximately 60 minutes was spent on the discharge of this patient , more than half that time spent with the patient at the bedside reviewing the events leading up to this hospitalization, performing the physical examination, and reviewing the plan of care. VIOLETTA REAVES NP [id number]/[facility] #: [id number] [facility]
== END 2017-08-02 17:40 | disposition home or self-care (01) ==
LOC: ED 12:16 → MEDTELE 13:44 → INTOOBSV 13:44
PROVIDERS: ADMIT Internal Medicine; ATTEND Hospitalist
DX: K40.90 Unilateral inguinal hernia, without obstruction or gangrene, not specified as recurrent (principal); R59.1 Generalized enlarged lymph nodes; R60.0 Localized edema; R06.02 Shortness of breath; R60.1 Generalized edema; R18.8 Other ascites; R16.1 Splenomegaly, not elsewhere classified; I10 Essential (primary) hypertension; Z86.2 Personal history of diseases of the blood and blood-forming organs and certain disorders involving the immune mechanism; Z85.820 Personal history of malignant melanoma of skin; Z90.49 Acquired absence of other specified parts of digestive tract; E66.01 Morbid (severe) obesity due to excess calories
CPT/HCPCS: 36415; 71046; 71260; 74177; 80048; 80053; 81003; 82550; 82553; 82728; 82746; 83540; 83550; 83605; 83880; 84484; 85025; 85610; 85730; 86140; 93005; 93306; 96374; 99204; 99284; C8929; G0378; J1644; J1940; Q9967